=== PATIENT | female | born 1995 | race Caucasian/White ===

== ENCOUNTER 2020-04-12 18:53 | Emergency (ER) | payer OTHER ==
[~2020-04-12] VITALS: Ht 175.3 cm; Wt 66.0 kg
--- NOTE | 2020-04-12 19:25 | NUR ---
pt to room from lobby
[2020-04-12] MEDS ORDERED: ONDANSETRON 2MG/ML, 2ML ONE (19:57)
[2020-04-12] MEDS ORDERED: ONDANSETRON 2MG/ML, 2ML IVPush ONE (20:00)
[2020-04-12] MEDS ORDERED: SODIUM CHLORIDE 0.9% 1,000ML IVBOLUS ONE (20:00)
[2020-04-12] MEDS ORDERED: SODIUM CHLORIDE FLUSH 10ML SYR IVF ONE (20:00)
[2020-04-12 20:10] LABS: MICROSCOPIC NOT IND
[2020-04-12 20:23] LABS: BASOPHILS % (AUTO) 1 % (0-1); EOSINOPHILS % (AUTO) 1 % (1-7); LYMPHOCYTES % (AUTO) 23 % (22-44); MEAN CORPUSCULAR HEMOGLOBIN 29.6 pg (27.0-34.8); MEAN CORPUSCULAR HGB CONC 33.3 g/dL (32.4-35.8); MEAN PLATELET VOLUME 8.6 fL (7.4-10.4); MONOCYTES % (AUTO) 8 % (2-9); NEUTROPHILS % (AUTO) 68 % (42-75); PLATELET COUNT 283 x10^3/uL (130-400); RED BLOOD COUNT 5.13 x10^6/uL (3.82-5.3); RED CELL DISTRIBUTION WIDTH 12.2 % (9.6-15.2)
[2020-04-12 20:25] LABS: ALANINE AMINOTRANSFERASE 19 U/L (12-78); ALBUMIN 4.6 g/dL (3.4-5.0); ANION GAP 7 mmol/L (5-15); CALCIUM 9.7 mg/dL (8.5-10.1); CHLORIDE 105 mmol/L (98-107); CREATININE 0.83 mg/dL (0.55-1.02)
[2020-04-12 20:30] LABS: ALKALINE PHOSPHATASE 74 U/L (45-117); BILIRUBIN,TOTAL 2.1 mg/dL (0.2-1.0); TOTAL PROTEIN 8.6 g/dL (6.4-8.2)
[2020-04-12 20:33] LABS: MD NO
[2020-04-12] MEDS ORDERED: DIAZEPAM 5 MG/ML, 2ML ONE (20:56)
[2020-04-12] MEDS ORDERED: DIAZEPAM 5 MG/ML, 10ML VIAL IV ONE (21:00)
--- NOTE | 2020-04-12 21:28 | NUR ---
EDUCATION ON HOW TO CHANGE A SERRATO BAG AND LEG BAG PROPERLY WAS DONE. PATIENT VERBALIZED THAT SHE UNDER STANDS.
[2020-04-12 21:46] VITALS: BP 117/62
== END 2020-04-12 21:48 | disposition home or self-care (01) ==
LOC: ED 19:51
DX: R11.2 Nausea with vomiting, unspecified (principal); R19.7 Diarrhea, unspecified
CPT/HCPCS: 36415; 80053; 81003; 83690; 84703; 85025; 96374; 96375; 99284; J2405; J3360; J7030; 99282; 99285

== ENCOUNTER 2020-05-16 04:38 | Emergency (ER) | payer OTHER ==
[~2020-05-16] VITALS: Ht 175.3 cm; Wt 67.0 kg
--- NOTE | 2020-05-16 05:10 | NUR ---
DR. STORY AT BEDSIDE FOR ASSESSMENT
[2020-05-16] MEDS ORDERED: ESCI20TA10 PO (05:13)
[2020-05-16] MEDS ORDERED: HYDR-826 PO (05:13)
[2020-05-16 05:14] VITALS: BP 127/92
[2020-05-16] MEDS ORDERED: MAALOX/HYOSCYAMINE/LIDOCAINE 45 ML BTL ONE (05:15)
[2020-05-16] MEDS ORDERED: ACETAMINOPHEN 500 MG TABLET ONE (05:15)
--- NOTE | 2020-05-16 05:20 | NUR ---
PT MEDICATED PER MAR
[2020-05-16] MEDS ORDERED: ACETAMINOPHEN 500 MG TABLET PO ONE (05:30)
[2020-05-16] MEDS ORDERED: MAALOX/HYOSCYAMINE/LIDOCAINE 45 ML BTL PO ONE (05:30)
--- NOTE | 2020-05-16 06:26 | NUR ---
PT STS SHE FEELS BETTER AFTER MEDS BUT IS A BIT NAUSEAS, UPDATED ERP
[2020-05-16] MEDS ORDERED: KETOROLAC 30 MG/1 ML IM ONE (06:30)
[2020-05-16] MEDS ORDERED: ONDANSETRON ODT 4 MG ONE (06:36)
[2020-05-16] MEDS ORDERED: KETOROLAC 30 MG/1 ML ONE (06:36)
[2020-05-16] MEDS ORDERED: ONDANSETRON ODT 8 MG PO ONE (07:00)
--- NOTE | 2020-05-16 07:13 | NUR ---
REPORT RECEIVED FROM MONY ROUSSEAU
== END 2020-05-16 07:50 | disposition home or self-care (01) ==
LOC: ED 06:12
DX: R07.89 Other chest pain (principal); I51.7 Cardiomegaly
CPT/HCPCS: 71045; 93005; 96372; 99284; J1885; Q0162

== ENCOUNTER 2021-02-18 17:02 | Emergency (ER) | payer OTHER, MEDICAID ==
[~2021-02-18] VITALS: Ht 175.3 cm; Wt 71.0 kg
[~2021-02-18 17:02] MED LIST: ESCI20TA10 PO; HYDR-826 PO
[2021-02-18] MEDS ORDERED: SODIUM CHLORIDE 0.9% 1,000ML IVBOLUS ONE (19:30)
[2021-02-18] MEDS ORDERED: SODIUM CHLORIDE FLUSH 10ML SYR IVF ONE (19:30)
--- NOTE | 2021-02-18 20:00 | NUR ---
TO ROOM FROM LOBBY. NAD.
[2021-02-18 21:30] LABS: BASOPHILS % (AUTO) 1 % (0-1); EOSINOPHILS % (AUTO) 1 % (1-7); LYMPHOCYTES % (AUTO) 6 % (22-44); MEAN CORPUSCULAR HEMOGLOBIN 30.4 pg (27.0-34.8); MEAN CORPUSCULAR HGB CONC 34.2 g/dL (32.4-35.8); MEAN PLATELET VOLUME 8.8 fL (7.4-10.4); MONOCYTES % (AUTO) 7 % (2-9); NEUTROPHILS % (AUTO) 86 % (42-75); PLATELET COUNT 289 x10^3/uL (130-400); RED BLOOD COUNT 5.02 x10^6/uL (3.82-5.3)
[2021-02-18 21:40] LABS: ALANINE AMINOTRANSFERASE 28 U/L (12-78); ALBUMIN 4.3 g/dL (3.4-5.0); ANION GAP 6 mmol/L (5-15); CALCIUM 9.5 mg/dL (8.5-10.1); CHLORIDE 108 mmol/L (98-107); CREATININE 0.66 mg/dL (0.55-1.02)
[2021-02-18 21:42] LABS: ALKALINE PHOSPHATASE 64 U/L (45-117); BILIRUBIN,TOTAL 0.8 mg/dL (0.2-1.0); TOTAL PROTEIN 8.8 g/dL (6.4-8.2)
[2021-02-18] MEDS ORDERED: OMNIPAQUE 350 MG/ML, 100ML BOTTLE ONE (22:52)
[2021-02-19 00:08] VITALS: BP 129/86
== END 2021-02-19 00:16 | disposition home or self-care (01) ==
LOC: ED 22:25
DX: R19.7 Diarrhea, unspecified (principal); R11.2 Nausea with vomiting, unspecified; R00.2 Palpitations; R55 Syncope and collapse; R07.89 Other chest pain; R00.0 Tachycardia, unspecified
CPT/HCPCS: 36415; 71045; 71275; 80053; 85025; 85379; 93005; 96360; 99285; J7030; Q9967